=== PATIENT | female | born 1970 | race Caucasian/White ===

== ENCOUNTER → 2017-03-12 | Outpatient (CLI) | payer SELFPAY ==
[2017-03-12 09:54] LABS: Basophils # (A) 0.1 k/uL (0-0.2); Basophils % (A) 1 %; CH 30.3; CHCM 33.8; Eosinophils # (A) 0.4 k/uL (0-0.7); Eosinophils % (A) 5 %; HCT 40.3 % (34.0-46.0); HDW 2.23; HGB 13.7 gm/dL (11.4-16.0); Luc # (Auto) 0.14; Luc % (Auto) 2; Lymphocytes % (A) 25 %; MCH 30.7 pg (25.0-35.0); MCHC 34.1 g/dL (31.0-37.0); MCV 90.1 fL (80.0-100.0); Mean Platelet Volume 6.8; Monocytes # (A) 0.5 k/uL (0-1.0); Monocytes % (A) 6 %; Neutrophils # (A) 4.8 k/uL (1.3-7.7); Neutrophils % (A) 62 %; RBC 4.48 m/uL (3.80-5.40); RDW 12.8 % (11.5-15.5); WBC 7.7 k/uL (3.8-10.6); WBC (Perox) 8.18
[2017-03-12 13:20] LABS: ALT 33 U/L (9-52); AST 23 U/L (14-36); Alkaline Phosphatase 96 U/L (38-126); Anion Gap 10 mmol/L; Blood Urea Nitrogen 16 mg/dL (7-17); Calcium 9.5 mg/dL (8.4-10.2); Carbon Dioxide 24 mmol/L (22-30); Chloride 105 mmol/L (98-107); Cholesterol 195 mg/dL (<200); Glucose 87 mg/dL (74-99); HDL Cholesterol 81 mg/dL (40-60); Non-African American GFR(MDRD) 60 (>60 ml/min/1.73 sqM); Potassium 4.2 mmol/L (3.5-5.1); Sodium 139 mmol/L (137-145); Total Bilirubin 1.3 mg/dL (0.2-1.3); Triglycerides 65 mg/dL (<150)
[2017-03-12 14:09] LABS: Vitamin B12 914 pg/mL (239-931)
== END | disposition home or self-care (01) ==
LOC: LABWHC1 09:38
PROVIDERS: ATTEND Family Medicine
DX: F32.9 Major depressive disorder, single episode, unspecified (principal); E66.9 Obesity, unspecified
CPT/HCPCS: 36415; 80053; 80061; 82607; 84443; 85025

== ENCOUNTER → 2017-12-07 | Outpatient (CLI) | payer MEDICAID ==
--- NOTE | 2017-12-07 09:23 | US ---
EXAMINATION TYPE: US pelvis complete transvag DATE OF EXAM: 12/07/2017 COMPARISON: NONE CLINICAL HISTORY: N93.8 Dysfunctional Uterine Bleeding. Patient stated had normal menstrual cycle las ting 5 days, then started menstrual cycle agian lasting 3 weeks TECHNIQUE: Transvaginal (TV) and Transabdominal (TA) per order. . Date of LMP: 11/19/2017 EXAM MEASUREMENTS: Uterus: 10.7 x 5.2 x 4.7 cm Endometrial Stripe: 1.5 cm Right Ovary: 4.1 x 3.6 x 4.1 cm Left Ovary: 2.9 x 2.3 x 1.1 cm 1. Uterus: Anteverted; couple of Nabothian cysts with largest = 0.5 x 0.4 x 0.4cm 2. Endometrium: thickness is wnl for day 19LMP, however, 2 cysts are noted mid myometrial endometria l periphery mid level with larger cyst = 0.7 x 0.7 x 0.7cm. 3. Right Ovary: enlarged ovary with simple ovarian cyst = 2.9 x 3.1 x 2.8cm 4. Left Ovary: multiple small follicles and is positioned upper left to uterus 5. Bilateral Adnexa: wnl 6. Posterior cul-de-sac: wnl IMPRESSION: 1. Simple right ovarian cyst and multiple small left ovarian follicles.
== END | disposition home or self-care (01) ==
LOC: RADUSWWP 06:48
PROVIDERS: ATTEND Family Medicine
DX: N83.201 Unspecified ovarian cyst, right side (principal); N92.0 Excessive and frequent menstruation with regular cycle
CPT/HCPCS: 76830; 76856

== ENCOUNTER 2017-12-17 19:58 | Emergency (ER) | payer MEDICAID, OTHER ==
[2017-12-17 20:07] VITALS: BP 130/69; PULSE 94; RESP 18; TEMP 98.2
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
== END 2017-12-17 20:43 | disposition home or self-care (01) ==
LOC: EC 19:58
DX: S50.812A Abrasion of left forearm, initial encounter (principal); Z88.0 Allergy status to penicillin; Z88.1 Allergy status to other antibiotic agents; Z88.2 Allergy status to sulfonamides; W50.4XXA Accidental scratch by another person, initial encounter; Y99.0 Civilian activity done for income or pay
CPT/HCPCS: 99282

== ENCOUNTER → 2019-04-04 | Outpatient (CLI) | payer MEDICAID ==
--- NOTE | 2019-04-12 13:50 | MM ---
Reason for exam: screening (asymptomatic). Last mammogram was performed 8 years and 1 month ago. Physical Findings: A clinical breast exam by your physician is recommended on an annual basis and results should be correlated with mammographic findings. MG 3D Screening Mammo W/Cad Bilateral CC and MLO view(s) were taken. Prior study comparison: February 26, 2011, mammogram, performed at [place]. The breast tissue is heterogeneously dense. This may lower the sensitivity of mammography. Benign appearing calcifications in the right breast. Additionally a 3mm right upper outer quadrant far posterior depth group is seen requiring further work up. ASSESSMENT: Incomplete: need additional imaging evaluation, BI-RAD 0 RECOMMENDATION: Special view mammogram of the right breast. [facility] will attempt to contact patient to return for supplemental views.
== END | disposition home or self-care (01) ==
LOC: RADMAMWWP 07:04
PROVIDERS: ATTEND Family Medicine
DX: Z12.31 Encounter for screening mammogram for malignant neoplasm of breast (principal)
CPT/HCPCS: 77063; 77067

== ENCOUNTER → 2019-04-21 | Outpatient (CLI) | payer MEDICAID ==
--- NOTE | 2019-04-22 08:06 | MM ---
Reason for exam: additional evaluation requested from abnormal screening. Last mammogram was performed 1 month ago. Physical Findings: Nurse did not find any significant physical abnormalities on exam. MG 3D Work Up W/Cad RT Spot compression CC, spot compression MLO, ML, CC with magnification, and ML with magnification view(s) were taken of the right breast. Prior study comparison: April 04, 2019, bilateral MG 3d screening mammo w/cad. February 26, 2011, mammogram, performed at [place]. The breast tissue is heterogeneously dense. This may lower the sensitivity of mammography. There are diffuse round calcifications in the right breast 18cm from nipple. This finding is changed when compared with previous exams. These results were verbally communicated with the patient and result sheet given to the patient on 04/21/19. ASSESSMENT: Suspicious, BI-RAD 4 RECOMMENDATION: Stereotactic core biopsy of the right breast. Called Dr. Somers with mammographic findings and has scheduled an appointment for the patient for 06/16/19 at 10:[address] Ruiz. Biopsy scheduled for 05/24/19 at 2:20. PRELIMINARY REPORT CALLED AND FAXED TO DR. RUIZ ON 04/21/19.
== END | disposition home or self-care (01) ==
LOC: RADMAMWWP 14:50
PROVIDERS: ATTEND Family Medicine
DX: R92.8 Other abnormal and inconclusive findings on diagnostic imaging of breast (principal)
CPT/HCPCS: 77061; 77065

== ENCOUNTER → 2019-05-10 | Day surgery (SDC) | payer MEDICAID ==
[2019-05-10 13:43] VITALS: BP 112/78; PULSE 76; RESP 16; BMI 39.1
--- NOTE | 2019-05-10 15:24 | MM ---
EXAMINATION TYPE: MG discontinued stereo core RT DATE OF EXAM: 05/10/2019 COMPARISON: Mammograms dated 04/21/2019 and 04/12/2019 CLINICAL HISTORY: Indeterminate right breast calcifications of the upper outer quadrant TECHNIQUE: Stereotactic guided core biopsy of right breast. FINDINGS: The procedure of stereotactic guided core biopsy was explained to the patient. Benefits, a lternatives, and risks were discussed. An informed consent was then obtained. Preprocedural timeout was performed. The calcifications in question were localized mammographically and stereo pair images were obtained. However, upon calculation of the coordinates the Z value is compatible with skin calcifications. On r eview of the prior 3-D images these calcifications appear just deep to the skin surface and could be within a deep pore. These are not amenable to stereotactic guided biopsy and six-month follow-up will be performed of the right breast with diagnostic mammography. If there is interval increase of the t gabbie of needle localization would be recommended. Findings and recommendation were discussed with the patient at the time of the capsule procedure. IMPRESSION: Unsuccessful stereotactic guided biopsy of right breast calcifications, possibly deep ski n calcifications. Six-month follow-up diagnostic right breast mammogram will be performed.
== END ==
LOC: RADMAMWWP 13:17
PROVIDERS: ATTEND Surgery
DX: R92.1 Mammographic calcification found on diagnostic imaging of breast (principal)

== ENCOUNTER → 2019-11-16 | Outpatient (CLI) | payer MEDICAID ==
[2019-11-16 10:04] LABS: Basophils % (A) 1 %; Eosinophils # (A) 0.4 k/uL (0-0.7); Eosinophils % (A) 6 %; HGB 13.3 gm/dL (11.4-16.0); Lymphocytes # (A) 1.7 k/uL (1.0-4.8); Lymphocytes % (A) 27 %; MCH 29.2 pg (25.0-35.0); MCHC 31.7 g/dL (31.0-37.0); MCV 91.9 fL (80.0-100.0); Mean Platelet Volume 7.1; Monocytes # (A) 0.4 k/uL (0-1.0); Monocytes % (A) 7 %; Neutrophils # (A) 3.7 k/uL (1.3-7.7); Neutrophils % (A) 57 %; Platelet Count 289 k/uL (150-450); RBC 4.57 m/uL (3.80-5.40); WBC 6.4 k/uL (3.8-10.6)
[2019-11-16 16:23] LABS: African American GFR (CKD) 87.6 (60.0-200.0); Albumin/Globulin Ratio 1.67 (1.60-3.17); Anion Gap 6.5 mmol/L (4.00-12.00); BUN/Creat Ratio 13.33 Ratio (12.00-20.00); Bilirubin, Conjugated 0.2 mg/dL (0.20-0.40); Bilirubin,Unconjugated 0.5 mg/dL; Calcium 8.9 mg/dL (8.7-10.3); Carbon Dioxide 27.5 mmol/L (21.6-31.8); Chol/HDL Ratio 2.44; Globulin 2.4 g/dL (1.6-3.3); LDL Cholesterol,Calculated 96.6 mg/dL (0.0-131.0); Non-African American GFR(CKD) 75.6 (60.0-200.0); Potassium 4.5 mmol/L (3.5-5.5); Total Bilirubin 0.7 mg/dL (0.2-1.2); Total Protein 6.4 g/dL (6.2-8.2); VLDL Calculation 17.4 mg/dL (5.00-40.00)
== END | disposition home or self-care (01) ==
LOC: LABWHC1 09:08
PROVIDERS: ATTEND Internal Medicine Critical Care Medicine
DX: Z00.00 Encounter for general adult medical examination without abnormal findings (principal)
CPT/HCPCS: 36415; 80053; 80061; 82248; 82306; 83036; 84439; 84443; 85025

== ENCOUNTER → 2021-01-24 | Outpatient (CLI) | payer MEDICAID ==
--- NOTE | 2021-01-24 11:22 | MM ---
Reason for exam: screening (asymptomatic). Last mammogram was performed 1 year and 9 months ago. History: MG discontinued stereo core RT of the right breast, May 10, 2019. Physical Findings: A clinical breast exam by your physician is recommended on an annual basis and results should be correlated with mammographic findings. MG 3D Diag Mammo W/Cad JARED Bilateral CC and MLO view(s) were taken. Prior study comparison: April 21, 2019, right breast MG 3d work up w/cad RT. April 04, 2019, bilateral MG 3d screening mammo w/cad. The breast tissue is heterogeneously dense. This may lower the sensitivity of mammography. Finding: There are typically benign dystrophic, round, regional calcifications in both breasts. There is no discrete abnormality. These results were verbally communicated with the patient and result sheet given to the patient on 01/24/21. ASSESSMENT: Benign, BI-RAD 2 RECOMMENDATION: Routine screening mammogram of both breasts in 1 year.
== END | disposition home or self-care (01) ==
LOC: RADMAMWWP 10:15
PROVIDERS: ATTEND Obstetrics & Gynecology
DX: R92.1 Mammographic calcification found on diagnostic imaging of breast (principal)
CPT/HCPCS: 77062; 77066

== ENCOUNTER → 2021-01-30 | Outpatient (CLI) | payer MEDICAID ==
[2021-01-30 15:50] LABS: Basophils # (A) 0.05 X 10*3/uL (0.00-0.10); Basophils % (A) 0.7 %; Eosinophils # (A) 0.37 X 10*3/uL (0.04-0.35); HCT 43.8 % (37.2-46.3); HGB 14.4 g/dL (12.0-15.0); Lymphocytes # (A) 1.72 X 10*3/uL (0.90-5.00); Lymphocytes % (A) 23.3 %; MCH 30.3 pg (27.0-32.0); MCHC 32.9 g/dL (32.0-37.0); Mean Platelet Volume 9.9 fL (9.5-12.2); Monocytes # (A) 0.58 X 10*3/uL (0.20-1.00); Monocytes % (A) 7.9 %; Neutrophils # (A) 4.62 X 10*3/uL (1.80-7.70); Neutrophils % (A) 62.7 %; Platelet Count 261 X 10*3/uL (140-440); RBC 4.76 X 10*6/uL (4.10-5.20); RDW 13.2 % (11.5-14.5); WBC 7.37 X 10*3/uL (4.50-10.00)
[2021-01-30 17:20] LABS: Hemoglobin A1C 4.8 % (4.0-6.0)
[2021-01-31 00:17] LABS: African American GFR (CKD) 86.4 (60.0-200.0); Albumin 3.5 g/dL (3.80-4.90); Albumin/Globulin Ratio 1.94 (1.60-3.17); BUN/Creat Ratio 24.44 Ratio (12.00-20.00); Bilirubin, Conjugated 0.3 mg/dL (0.20-0.40); Bilirubin,Unconjugated 0.8 mg/dL; Calcium 8.9 mg/dL (8.7-10.3); Chol/HDL Ratio 3.02; Globulin 1.8 g/dL (1.6-3.3); LDL Cholesterol,Calculated 108.4 mg/dL (0.0-131.0); Non-African American GFR(CKD) 74.6 (60.0-200.0); Potassium 4.6 mmol/L (3.5-5.5); Total Bilirubin 1.1 mg/dL (0.3-1.2); Total Protein 5.3 g/dL (6.2-8.2); VLDL Calculation 10.6 mg/dL (5.00-40.00)
[2021-01-31 00:27] LABS: T4, Free (Free Thyroxine) 0.8 ng/dL (0.80-1.80)
== END | disposition home or self-care (01) ==
LOC: LABWHC1 09:08
PROVIDERS: ATTEND Internal Medicine Critical Care Medicine
DX: Z00.00 Encounter for general adult medical examination without abnormal findings (principal); C80.1 Malignant (primary) neoplasm, unspecified; E11.9 Type 2 diabetes mellitus without complications; E55.9 Vitamin D deficiency, unspecified; M33.10 Other dermatomyositis, organ involvement unspecified; R05 Cough
CPT/HCPCS: 36415; 80053; 80061; 82248; 82306; 83036; 84439; 84443; 85025